=== PATIENT | female | born 1990 | race Caucasian/White ===

== ENCOUNTER 2017-07-03 09:50 | Emergency (ER) | payer OTHER ==
[~2017-07-03] VITALS: Ht 165.1 cm; Wt 52.5 kg
[~2017-07-03 09:50] MED LIST: ACET50TA PO; ANUS2.5C2 TOP; COLA100C5 PO; DIBU0.5O TOP; IBUP-1114 PO; PREN1TAB18 PO
[2017-07-03 11:28] LABS: BASO % 0.4 % (0.0-1.0); EOS # 0.1 K/mm3 (0.0-0.50); EOS % 1.3 % (0.0-3.0); LARGE UNSTAINED CELL # 0.1 K/mm3 (0.0-0.4); LARGE UNSTAINED CELL % 1.7 % (0.0-4.0); LYMPH # 1.6 K/mm3 (1.5-6.5); LYMPH % 24.2 % (24.0-44.0); MEAN CORPUSCULAR HEMOGLOBIN 30.1 pg (27.0-33.0); MONO # 0.3 K/mm3 (0.0-0.8); MONO % 3.9 % (0.0-5.0); NEUTROPHILS # 4.6 K/mm3 (1.8-7.7); NEUTROPHILS % 68.6 % (36.0-66.0); PLATELET COUNT, AUTOMATED 202 k/mm3 (150-450); RED CELL DISTRIBUTION WIDTH 13.7 % (11.5-14.5); WHITE BLOOD COUNT 6.7 K/mm3 (4.0-10.0)
--- NOTE | 2017-07-03 12:12 | REP ---
First trimester obstetric ultrasound for vaginal bleeding, emergency room request: There are no prior studies. The study is performed with transabdominal, endovaginal and Doppler ultrasound assessment: No there is no identifiable intrauterine gestational sac. On endovaginal imaging there is a tiny cyst in the fundal zone of the endometrium, nonspecific, endometrial cyst versus very early gestational sac. There are no dominant ovarian masses or cysts. The ovaries are normal size. Right ovary measures 2.0 1.5 x 2.2 cm. Left ovary measures 3.1 x 2.3 x 1.9 cm. There is vascular flow in both ovaries. The Doppler resistive index of the intraparenchymal arteries on the right is 0.64. The Doppler resistive index of the intraparenchymal arteries on the left is 0.56. There is a trace of free fluid in the posterior cul-de-sac. Impression: No identifiable intrauterine gestation at this time. This is nonspecific and could represent a very early gestation not visible by ultrasound at this time, spontaneous or ectopic gestation. Follow-up is recommended. Signed by Donald Brunner MD 07/03/2017 12:03 P
[2017-07-03 13:06] VITALS: BP 117/68
== END 2017-07-03 13:07 | disposition home or self-care (01) ==
LOC: M ED 09:50
DX: O20.0 Threatened abortion (principal); Z3A.01 Less than 8 weeks gestation of pregnancy